=== PATIENT | female | born 1960 | race Caucasian/White ===

== ENCOUNTER 2023-05-12 14:34 | Outpatient (CLI) | payer MEDICARE, OTHER ==
[2023-05-12 15:47] LABS: Hematocrit 41.7 % (34.9-44.5); Hemoglobin 13.6 g/dL (12.0-15.5); Mean Corpuscular HGB CONC 32.6 g/dL (32.0-36.0); Mean Corpuscular Hemoglobin 29.1 pg (27.0-33.0); Mean Corpuscular Volume 89.1 fl (81.6-98.3); Platelet Count 438 10x3/uL (150-450); Red Blood Cell (RBC) Count 4.68 10x6/uL (3.90-5.03); White Blood Cell (WBC) Count 7.2 10x3/uL (3.5-10.5)
== END 2023-05-12 14:35 | disposition home or self-care (01) ==
LOC: LABBT 14:34
PROVIDERS: ATTEND Orthopaedic Surgery
DX: Z01.812 Encounter for preprocedural laboratory examination (principal); S82.851A Displaced trimalleolar fracture of right lower leg, initial encounter for closed fracture
CPT/HCPCS: 85027

== ENCOUNTER 2023-05-16 10:21 | Day surgery (SDC) | payer MEDICARE, OTHER ==
[2023-05-12 15:14] VITALS: BMI 30.9
[2023-05-16] MEDS ORDERED: fentaNYL 50 mcg/mL 1 mL Vial ONE (11:32)
[2023-05-16] MEDS ORDERED: Bupivacaine PF 0.5% 30 ML VIAL ONE (11:32)
[2023-05-16] MEDS ORDERED: Midazolam HCl 2 mg/2 ml Vial ONE (11:32)
[2023-05-16] MEDS ORDERED: Bupivacaine HCl 0.5%/Epinephrine 1:200,000/PF 30 ml Vial ONE (12:15)
[2023-05-16] MEDS ORDERED: CEFAZOLIN 2 GM VIAL ONE (12:26)
[2023-05-16] MEDS ORDERED: Sodium Chloride 0.9% 100 ML ONE (12:26)
[2023-05-16] MEDS ORDERED: PROPOFOL 20 ML ONE (12:37)
[2023-05-16] MEDS ORDERED: Dexamethasone 4 mg/ml Vial ONE (12:37)
[2023-05-16] MEDS ORDERED: fentaNYL PF 100 MCG/2 ML SYRINGE ONE (12:37)
[2023-05-16] MEDS ORDERED: Lidocaine 1% PF 5 ML VIAL ONE (12:37)
[2023-05-16] MEDS ORDERED: Ondansetron PF 4 MG/2 ML Vial ONE (12:37)
[2023-05-16] MEDS ORDERED: Lidocaine 2% 6 ML (Jelly) SYR ONE (12:38)
[2023-05-16] MEDS ORDERED: HYDROmorphone 2 MG/ML VIAL SLOW IVP PRN (13:43)
[2023-05-16] MEDS ORDERED: Ondansetron HCl/PF 4 MG/2 ML Vial IVP PRN (13:43)
[2023-05-16] MEDS ORDERED: Promethazine HCl 25 MG/ML VIAL IM PRN (13:43)
[2023-05-16] MEDS ORDERED: CEFAZOLIN 1 GM VIAL ONE (13:52)
== END 2023-05-16 16:58 | disposition home or self-care (01) ==
LOC: SDC 10:21
PROVIDERS: ATTEND Orthopaedic Surgery
PROC: 0QSG04Z Reposition Right Tibia with Internal Fixation Device, Open Approach (ICD-10-PCS; principal; 2023-05-16)
DX: S82.851A Displaced trimalleolar fracture of right lower leg, initial encounter for closed fracture (principal); E07.9 Disorder of thyroid, unspecified; F10.90 Alcohol use, unspecified, uncomplicated; Z98.890 Other specified postprocedural states; Z79.899 Other long term (current) drug therapy; Z91.013 Allergy to seafood; W19.XXXA Unspecified fall, initial encounter
CPT/HCPCS: 27822; 73610; J3010; C1713; J0690; J1100; J2250; J2405; J2704; J3490; S0020